=== PATIENT | female | born 1940 | race Caucasian/White ===

== ENCOUNTER 2017-01-23 14:43 | Inpatient (IN) | payer OTHER ==
--- NOTE | ~2017-01-23 | CN ---
Consultation Report [facility] [address] [place]. [address] NAME: ALBA CALVO : 38 STATUS : ADM IN PAT#: [id number] AGE: 76 ADM/REG DATE : 01/23/17 MR#: [id number] REPORT SERV DATE: 01/24/17 DICTATED BY: DILLON SANCHEZ DATE: 01/24/17 REPORT STATUS : Draft TRANSCRIBED BY: MODL DATE: 01/24/17 GI CONSULTATION. DATE OF CONSULTATION: 01/24/2017 REASON FOR CONSULTATION: Evaluation and management of partial small bowel obstruction, dark emesis/NG tube output. HISTORY OF PRESENT ILLNESS: Ms. Calvo is a very pleasant 76-year-old female patient who initially was seen at [facility] on 01/23/2017 for nausea and vomiting. 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 She states that she ate dinner the night before, which consisted of white beans, cornbread. She awoke with nausea, vomiting. She states she had multiple episodes of emesis, which was nonbloody. Secondary to uncontrolled emesis, she went to [facility]. She had a CT scan done there with IV contrast showing sigmoid colon diverticulosis, abnormal distal and terminal ilium attributed to nonspecific enteritis, however, neoplasm could not be excluded, mild distention of the proximal mid small bowel up to 2.8 cm, suspicious for early partial bowel obstruction, some minimal bowel inflammation. She was admitted to [facility] for further care. She had a flat and upright abdominal films this morning that showed nonobstructive bowel gas pattern. She states that she had to have repositioning of the NG tube multiple times, which was quite traumatic for her. Dr. Fink indicates that she had clear output initially, which has turned dark since being here. She denies any associated abdominal pain, fever, chills, chest pain, shortness of breath. She states that she had a somewhat normal bowel movement yesterday, but had none since then. She is at present passing some flatus, still denies abdominal pain. We were consulted to see her for the possibility of upper GI bleeding. Her hemoglobin is 13.1 with a recheck being ordered. I have discussed with her the potential of repeat CT scan as well as the potential of upper endoscopy tomorrow. She states that she has had a colonoscopy in the past about ten years ago, which was a completely benign exam. PAST MEDICAL HISTORY: Positive for an irregular heartbeat, taking verapamil; hypertension; benign breast biopsy. PAST SURGICAL HISTORY: Hysterectomy in the 1980s. ALLERGIES: PENICILLIN. HOME MEDICATIONS: Aspirin, vitamin B12, Hyzaar, and verapamil. FAMILY HISTORY: Negative from a GI standpoint. SOCIAL HISTORY: Denies alcohol, tobacco, or illicits. Lives independently. REVIEW OF SYSTEMS: Consultation Report [place] [id number] [place]. [address] NAME: ALBA CALVO : 38 STATUS : ADM IN [facility]#: [id number] AGE: 76 ADM/REG DATE : 01/23/17 MR#: [id number] REPORT SERV DATE: 01/24/17 DICTATED BY: DILLON SANCHEZ DATE: 01/24/17 REPORT STATUS : Draft TRANSCRIBED BY: MODL DATE: 01/24/17 A 10-point review of systems has been obtained with pertinent positives being addressed in the history of present illness. PERTINENT LABORATORY DATA: Sodium is 144, potassium 3.8, BUN is 13, creatinine 0.87. White count 8, hemoglobin 13.1, hematocrit 40. PHYSICAL EXAMINATION: VITAL SIGNS: Temperature is 98.2, pulse of 72, respirations 16, blood pressure 189/86. NEURO: Reveals an alert female sitting up in bed with no focal deficits. GENERAL: Cooperative, in no apparent distress. Awake, alert, oriented x3. HEAD EARS, EYES, NOSE, AND THROAT: Anicteric. Pupils equal, round, reactive to light and accommodation. Normocephalic and atraumatic. NECK: No JVD. No palpable nodes. LUNGS: Diminished throughout with normal respiratory effort exhibited. Equal expansion. CARDIOVASCULAR: Regular rate and rhythm. ABDOMEN: Round and obese. Nontender with hypoactive bowel sounds. NG tube with dark brown in the canister as well as the NG tubing. EXTREMITIES: No edema. Normal distal pulses. SKIN: Warm, dry, and intact. ASSESSMENT AND PLAN: 1. Dark coffee-ground material in the NG tube. Question if this could be secondary to NG tube trauma versus peptic ulcer disease. 2. Nausea and vomiting with partial small bowel obstruction on CT. 3. Abnormal distal ileum and terminal ileum on CT with questionable nonspecific enteritis. PLAN: 1. Increase her proton pump inhibitor to t.i.d. dosing. 2. Repeat CT scan in the morning. 3. EGD, if decreased hemoglobin continues with dark output from the NG tube. 4. Check sedimentation rate and CRP. 5. We will need followup colon with resolution of symptoms. 6. Stool studies if diarrhea. We will follow. ROSSI/RHONDA [place] JODI Owens / [id number] CC: Adriel Fink M.D. Consultation Report [address] [place]. [address] NAME: ALBA CALVO : 38 STATUS : ADM IN [facility]#: [id number] AGE: 76 ADM/REG DATE : 01/23/17 MR#: [id number] REPORT SERV DATE: 01/24/17 DICTATED BY: DILLON SANCHEZ DATE: 01/24/17 REPORT STATUS : Draft TRANSCRIBED BY: RHONDA DATE: 01/24/17 John Arriola M.D.
--- NOTE | ~2017-01-23 | HP ---
History And Physical [place] [id number] [facility] [place]. [address] NAME: ALBA JOSHUA : 38 STATUS : ADM IN PAT#: [id number] AGE: 76 ADM/REG DATE : 01/23/17 MR#: [id number] REPORT SERV DATE: 01/23/17 DICTATED BY: LISE BENJAMIN DATE: 01/23/17 REPORT STATUS : Draft TRANSCRIBED BY: MODL DATE: 01/23/17 DATE OF ADMISSION: 01/23/2017 HISTORY OF PRESENT ILLNESS: This is a 76-year-old female, who comes in for nausea and vomiting. The patient is a relatively healthy individual, who was doing fine and does not remember eating anything that did not agree with her. She slept around 10 o'clock, and around 12, she woke up and started vomiting previously ingested food, every so often for about three hours. She gotten so weak that she was brought to the emergency room. In the ER of [facility], they did several tests including a chest x-ray, which revealed a normal chest. They did a CAT scan of the abdomen and pelvis, which revealed a partial small bowel obstruction, the area of the distal and terminal ilium with possible enteritis. There is minimal bowel inflammation. They also found a 2.3 x 2.3 x 2.1 cm adrenal gland nodule. The patient then requested to be transferred to [facility], and she came in here and she said that she is actually feeling better. She had some abdominal pain, but denies it now. She did not have any chest pain, shortness of breath. She did not have any near syncopal or syncopal episode. No cough. No shortness of breath. No bowel changes. No urinary changes. No new rashes or joint pains. REVIEW OF SYSTEMS: The rest of the 14-point review of systems is negative except as above. PAST MEDICAL HISTORY: Includes a history of an irregular heartbeat for which she was placed on verapamil. She has been on it for about 30 years now. She was not given any specific diagnosis for that. She has high blood pressure. Hysterectomy in 198, a benign breast biopsies. ALLERGIES: SHE IS ALLERGIC TO PENICILLIN WHICH CAUSES A RASH. MEDICATIONS: Include aspirin, cyanocobalamin, Hyzaar, and verapamil. FAMILY HISTORY: The patient has two sons, one year ago. Rest of family history, it was asked and it is noncontributory. SOCIAL HISTORY: The patient does not smoke, drink, or use recreational drugs. 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 PHYSICAL EXAMINATION: GENERAL: The patient is alert and oriented x3, not in cardiopulmonary distress. VITAL SIGNS: Include a pulse rate of 96, respiration of 18, blood pressure of 143/82, saturating 95% on room air. NECK: She has supple neck. No JVD or carotid bruits. No lymphadenopathy. [place] conjunctivae. Anicteric sclerae. No pharyngeal erythema. She has an NGT in place. LUNGS: Clear lungs. No rales, no wheezes. CARDIOVASCULAR: Regular rate and rhythm. No murmurs appreciated. Positive bowel sounds. Soft, nontender, no masses. Fair pulses. No edema. NEURO: Nonlocalizing. History And Physical [address] [address] NAME: ALBA JOSHUA : 38 STATUS : ADM IN [facility]#: [id number] AGE: 76 ADM/REG DATE : 01/23/17 MR#: [id number] REPORT SERV DATE: 01/23/17 DICTATED BY: LISE BENJAMIN DATE: 01/23/17 REPORT STATUS : Draft TRANSCRIBED BY: RHONDA DATE: 01/23/17 LABORATORIES: From [facility] reveals a chemistry showing a glucose of 199. The rest of the chemistry is within acceptable limits. White count of 11.6. The rest of the CBC is within normal limits. Urinalysis is unremarkable. Lipase is 25, which is normal. Troponin is negative. IMAGING: EKG shows normal sinus rhythm. Normal axis. No ST-T wave changes. ASSESSMENT: 1. Enteritis. 2. Partial small bowel obstruction. 3. Hypertension. 4. History of arrhythmias. 5. Adrenal nodule. PLAN: The patient will be initially be managed conservatively with NGT and p.o. fluids and serial labs and KUB. We will give her some antiemetics as well. We will check the stool if positive diarrhea. If this worsens, we will get GI plus minus surgery to consult. We will hold p.o. medications for now and place on IV metoprolol. Check hemoglobin A1c and place on subcu insulin protocol. This has been explained to the patient in front of the family, and they agreed and understood the plan. RLY/RHONDA Lise Benjamin M.D. / [phone] CC: Dany Love M.D.
--- NOTE | ~2017-01-23 | IDS ---
Interim Discharge Summary [facility] [address] [place]. [address] NAME: ALBA JOSHUA : 38 STATUS : ADM IN PAT#: [id number] AGE: 76 ADM/REG DATE : 01/23/17 MR#: [id number] REPORT SERV DATE: 01/26/17 DICTATED BY: LISE BENJAMIN DATE: 01/26/17 REPORT STATUS : Draft TRANSCRIBED BY: RHONDA DATE: 01/26/17 ADMISSION DATE: 01/23/2017 DISCHARGE DATE: INTERIM DIAGNOSES: 1. Enteritis. 2. Partial small bowel obstruction. 3. Hypertension. 4. History of unknown arrhythmia. 5. Adrenal nodule. CONSULTING PHYSICIAN: Dr. Aguila for GI. DIAGNOSTIC EXAM: KUB showing satisfactory NG tube placement. Repeat x-ray showing nonobstructive bowel gas pattern without evidence for free air. NG tube in place as described. HOSPITAL COURSE: Please refer to the H and P done by myself dated on 01/23/2017. Briefly, this is a 76-year-old female, who comes in for nausea and vomiting. The patient started around few hours prior to admission when she started having some vomiting profusely several times before coming to the emergency room. She went finally to the ER of [facility] where a CAT scan of the abdomen and pelvis revealed a partial small bowel obstruction in the area of distal terminal ilium and possible enteritis. They also found an adrenal gland nodule. The patient requested to be transferred to [facility], and she was managed conservatively. The patient improved and was able to tolerate a clear liquid diet and denies pain; however, because of the findings of the CAT scan, we got GI involved, and they are planning to do a colonoscopy on the patient. The patient initially was hesitant for this, but finally agreed. So, she will undergo a colonoscopy tomorrow and a partner of [facility] will be following up the patient starting Friday. OFELIA/RHONDA Lise Benjamin M.D. / [id number] CC: Dany Love M.D.
--- NOTE | ~2017-01-23 | EGD ---
EGD REPORT [facility] [address] [place]. [address] NAME: BLANCA CALVO : 38 STATUS : ADM IN PAT#: [id number] AGE: 76 ADM/REG DATE : 01/23/17 MR#: [id number] REPORT SERV DATE: 01/27/17 DICTATED BY: DANNIE GÓMEZ DATE: 01/27/17 REPORT STATUS : Draft TRANSCRIBED BY: [facility] DATE: 01/27/17 Endoscopy Center Patient Name: Blanca Calvo Date of : 1940 Attending MD: DANNIE GÓMEZ MD Procedure Date No Time: 01/27/2017 Procedure: Colonoscopy Indications: Abnormal CT of the GI tract Referring MD: JOAO TREJO Medicines: Monitored Anesthesia Care Complications: No immediate complications. Estimated blood loss: Minimal. Procedure: Pre-Anesthesia Assessment: - ASA Grade Assessment: III - A patient with severe systemic disease. After I obtained informed consent, the scope was passed under direct vision. Throughout the procedure, the patient's blood pressure, pulse, and oxygen saturations were monitored continuously. The CF [id number] was introduced through the anus and advanced to the terminal ileum, with identification of the appendiceal orifice and IC valve. The colonoscopy was performed without difficulty. The patient tolerated the procedure well. The quality of the bowel preparation was good. Findings: The perianal and digital rectal examinations were normal. Pertinent negatives include no palpable rectal lesions. The terminal ileum appeared normal. Multiple small-mouthed diverticula were found in the sigmoid colon. A sessile polyp was found in the rectum. The polyp was 4 mm in size. The polyp was removed with a cold biopsy forceps. Resection and retrieval were complete. Estimated blood loss was minimal. Non-bleeding internal hemorrhoids were found during retroflexion and were medium-sized. The exam was otherwise without abnormality. Impression: - The examined portion of the ileum was normal. - Diverticulosis in the sigmoid colon. - One 4 mm polyp in the rectum. Resected and retrieved. - Non-bleeding internal hemorrhoids. - The examination was otherwise normal. Recommendation: - Return patient to [facility] for [facility] care. - Full liquid diet. EGD REPORT [address] [address] NAME: BLANCA CALVO : 38 STATUS : ADM IN [facility]#: [id number] AGE: 76 ADM/REG DATE : 01/23/17 MR#: [id number] REPORT SERV DATE: 01/27/17 DICTATED BY: DANNIE GÓMEZ DATE: 01/27/17 REPORT STATUS : Draft TRANSCRIBED BY: [employer] DATE: 01/27/17 - Await pathology results. Procedure Code(s): --- Professional --- 19276, Colonoscopy, flexible, proximal to splenic flexure; with biopsy, single or multiple Diagnosis Code(s): --- Professional --- K64.8, Other hemorrhoids K57.30, Diverticulosis of large intestine without perforation or abscess without bleeding K62.1, Rectal polyp R93.3, Abnormal findings on diagnostic imaging of other parts of digestive tract CPT copyright 2013 [employer]. All rights reserved. The codes documented in this report are preliminary and upon satellite communications engineer review may be revised to meet current compliance requirements. Dannie Gómez MD DANNIE GÓMEZ MD 01/27/2017 9:52 AM This report has been signed electronically. Number of Addenda: 0 Note Initiated On: 01/27/2017 9:08 AM Scope Withdrawal Time 0 hours 0 minutes 0 seconds [address] [place] [id number]
--- NOTE | ~2017-01-23 | DS ---
Discharge Summary [place] [address] [facility] [place]. [address] NAME: ALBA JOSHUA : 38 STATUS : DIS IN PAT#: [id number] AGE: 76 ADM/REG DATE : 01/23/17 MR#: [id number] REPORT SERV DATE: 01/28/17 DICTATED BY: LISE BENJAMIN. DATE: 01/27/17 REPORT STATUS : Draft TRANSCRIBED BY: RHONDA DATE: 01/27/17 ADMISSION DATE: 01/23/2017 DISCHARGE DATE: 01/27/2017 FINAL DIAGNOSES: 1. Enteritis. 2. Partial small bowel obstruction. 3. Hypertension. 4. History of arrhythmia. 5. Adrenal nodules. HOSPITAL COURSE: Please refer to my H and P done on 01/23/2017 and my interim discharge summary done on 01/26/2017. Since that time, the patient underwent a colonoscopy and it revealed sigmoid diverticula, internal hemorrhoids, 1 small polyp that was resected. No inflammation seen and no bleeding. GI then signed off. When the patient heard this, the patient wanted to be discharged home. So we are going to advance the patient's diet. If she tolerates a soft diet without any nausea, vomiting, abdominal pain, she will be discharged home with the above diagnoses. She will continue her home medications of Hyzaar 100/12.5 one tab p.o. daily, verapamil SR 240 mg a day, vitamin B12 of 1000 mcg a day, aspirin 81 mg at bedtime. She is going to follow up with Dr. Arriola in one to two weeks. This has been explained to the patient in front of three other family members, and they agreed and understood the plan. TIME SPENT: 35 minutes. OFELIA/RHONDA Lise Benjamin M.D. / [id number] CC: John Arriola M.D.
[2017-01-23] MEDS ORDERED: VERELAN240 MG PO (15:20)
[2017-01-23] MEDS ORDERED: CYANO1000T PO (15:20)
[2017-01-23] MEDS ORDERED: HYZAAR1 TAB PO (15:20)
[2017-01-23] MEDS ORDERED: ASAB PO (15:20)
[2017-01-23 18:24] LABS: INTERNATIONAL NORMAL RATI 1.1 UNITS (-); PARTIAL THROMBO TIME 25.3 SEC (22.5-37.2); PROTIME (NOT ORD) 14.1 SEC (12.0-14.5)
[2017-01-23 18:39] LABS: FREE T4 1.22 NG/DL (0.76-1.46); PHOSPHORUS, SERUM 2.8 MG/DL (2.5-4.5)
[2017-01-23 19:17] LABS: PROCALCITONIN <0.05 ng/mL (<0.5)
[2017-01-24 06:32] LABS: BASOPHILS 0.3 %; BASOPHILS ABSOLUTE 0.02 10/3/uL (0.0-0.16); EOSINOPHILS ABSOLUTE 0.16 10/3/uL (0.0-0.53); HEMOGLOBIN 13.1 g/dL (12.0-16.0); IMMATURE GRANULOCYTES 0.1 %; IMMATURE GRANULOCYTES ABSOLUTE 0.01 10/3/uL (0.0-0.11); LYMPHOCYTES 29.1 %; LYMPHOCYTES ABSOLUTE 2.32 10/3/uL (0.67-4.30); MANUAL DIFF NO %; MEAN CORPUS HGB CONC 32.8 g/dL (32.0-36.0); MEAN CORPUSCULAR HEMOGLOB 31.3 pg (26.0-34.0); MEAN CORPUSCULAR VOLUME 95.5 fL (80-100); MEAN PLATELET VOLUME 10.2 fL (9.2-13.0); MONOCYTES 7.9 %; MONOCYTES ABSOLUTE 0.63 10/3/uL (0.21-1.20); NEUTROPHILS 60.6 %; NEUTROPHILS ABSOLUTE 4.84 10/3/uL (2.02-8.40); PLATELET COUNT 274 10/3/uL (150-400); RBC DISTRIBUTION WIDTH 13.7 % (12.0-16.0); RED CELL COUNT 4.19 10/6/uL (4.0-5.6)
[2017-01-24 06:48] LABS: CALCIUM, SERUM 8.3 MG/DL (8.5-10.4); CHLORIDE, SERUM 109 MMOL/L (96-112); CO2 (CARBON DIOXIDE) 28 MMOL/L (24-34); CREATININE 0.87 MG/DL (0.55-1.02); GFR AFRICAN AMERICAN 74 ML/MIN (>=60); GFR NON AFRICAN AMERICAN 64 ML/MIN (>=60); GLUCOSE, SERUM 125 MG/DL (60-99); POTASSIUM, SERUM 3.8 MMOL/L (3.5-5.3); SODIUM, SERUM 144 MMOL/L (135-148)
[2017-01-24 06:49] LABS: BUN (BLOOD UREA NITROGEN) 13 MG/DL (6-23)
[2017-01-24 15:04] LABS: HEMATOCRIT 41.7 % (36.0-48.0); HEMOGLOBIN 13.5 g/dL (12.0-16.0)
[2017-01-24 15:38] LABS: SED RATE 20 MM/HR (0-20)
[2017-01-24 20:13] LABS: HEMATOCRIT 42.4 % (36.0-48.0); HEMOGLOBIN 13.7 g/dL (12.0-16.0)
[2017-01-25 02:09] LABS: BASOPHILS 0.1 %; BASOPHILS ABSOLUTE 0.01 10/3/uL (0.0-0.16); EOSINOPHILS 1.8 %; EOSINOPHILS ABSOLUTE 0.17 10/3/uL (0.0-0.53); HEMATOCRIT 39.6 % (36.0-48.0); HEMOGLOBIN 13.1 g/dL (12.0-16.0); IMMATURE GRANULOCYTES 0.2 %; IMMATURE GRANULOCYTES ABSOLUTE 0.02 10/3/uL (0.0-0.11); LYMPHOCYTES 23.2 %; LYMPHOCYTES ABSOLUTE 2.19 10/3/uL (0.67-4.30); MANUAL DIFF NO %; MEAN CORPUS HGB CONC 33.1 g/dL (32.0-36.0); MEAN CORPUSCULAR HEMOGLOB 31.8 pg (26.0-34.0); MEAN CORPUSCULAR VOLUME 96.1 fL (80-100); MEAN PLATELET VOLUME 10.2 fL (9.2-13.0); MONOCYTES 7.8 %; MONOCYTES ABSOLUTE 0.74 10/3/uL (0.21-1.20); NEUTROPHILS 66.9 %; PLATELET COUNT 251 10/3/uL (150-400); RBC DISTRIBUTION WIDTH 13.5 % (12.0-16.0); RED CELL COUNT 4.12 10/6/uL (4.0-5.6); WHITE BLOOD CELLS 9.4 10/3/uL (4.5-10.5)
[2017-01-25 02:21] LABS: BUN (BLOOD UREA NITROGEN) 11 MG/DL (6-23); CALCIUM, SERUM 8.3 MG/DL (8.5-10.4); CHLORIDE, SERUM 106 MMOL/L (96-112); CO2 (CARBON DIOXIDE) 30 MMOL/L (24-34); CREATININE 0.89 MG/DL (0.55-1.02); GFR AFRICAN AMERICAN 72 ML/MIN (>=60); GFR NON AFRICAN AMERICAN 62 ML/MIN (>=60); GLUCOSE, SERUM 110 MG/DL (60-99); POTASSIUM, SERUM 3.8 MMOL/L (3.5-5.3); SODIUM, SERUM 142 MMOL/L (135-148)
[2017-01-25 08:58] LABS: HEMATOCRIT 40.8 % (36.0-48.0); HEMOGLOBIN 13.3 g/dL (12.0-16.0)
[2017-01-26 11:43] LABS: BASOPHILS 0.1 %; BASOPHILS ABSOLUTE 0.01 10/3/uL (0.0-0.16); EOSINOPHILS 2.5 %; HEMATOCRIT 40.9 % (36.0-48.0); HEMOGLOBIN 13.3 g/dL (12.0-16.0); IMMATURE GRANULOCYTES 0.3 %; IMMATURE GRANULOCYTES ABSOLUTE 0.02 10/3/uL (0.0-0.11); LYMPHOCYTES 27.5 %; LYMPHOCYTES ABSOLUTE 2.18 10/3/uL (0.67-4.30); MEAN CORPUS HGB CONC 32.5 g/dL (32.0-36.0); MEAN CORPUSCULAR HEMOGLOB 30.9 pg (26.0-34.0); MEAN CORPUSCULAR VOLUME 94.9 fL (80-100); MEAN PLATELET VOLUME 10.6 fL (9.2-13.0); MONOCYTES 11.2 %; MONOCYTES ABSOLUTE 0.89 10/3/uL (0.21-1.20); NEUTROPHILS 58.4 %; NEUTROPHILS ABSOLUTE 4.62 10/3/uL (2.02-8.40); PLATELET COUNT 264 10/3/uL (150-400); RBC DISTRIBUTION WIDTH 13.5 % (12.0-16.0); RED CELL COUNT 4.31 10/6/uL (4.0-5.6); WHITE BLOOD CELLS 7.9 10/3/uL (4.5-10.5)
[2017-01-26 11:46] LABS: MANUAL DIFF NO %
[2017-01-26 11:55] LABS: BUN (BLOOD UREA NITROGEN) 8 MG/DL (6-23); CALCIUM, SERUM 8.9 MG/DL (8.5-10.4); CHLORIDE, SERUM 106 MMOL/L (96-112); CO2 (CARBON DIOXIDE) 28 MMOL/L (24-34); CREATININE 0.83 MG/DL (0.55-1.02); GFR AFRICAN AMERICAN 78 ML/MIN (>=60); GFR NON AFRICAN AMERICAN 68 ML/MIN (>=60); POTASSIUM, SERUM 3.9 MMOL/L (3.5-5.3); SODIUM, SERUM 141 MMOL/L (135-148)
[2017-01-26 11:56] LABS: GLUCOSE, SERUM 67 MG/DL (60-99)
[2017-01-27 06:35] LABS: BASOPHILS 0.1 %; BASOPHILS ABSOLUTE 0.01 10/3/uL (0.0-0.16); EOSINOPHILS 2.5 %; EOSINOPHILS ABSOLUTE 0.17 10/3/uL (0.0-0.53); HEMATOCRIT 37.4 % (36.0-48.0); HEMOGLOBIN 12.5 g/dL (12.0-16.0); IMMATURE GRANULOCYTES 0.3 %; IMMATURE GRANULOCYTES ABSOLUTE 0.02 10/3/uL (0.0-0.11); LYMPHOCYTES 29.4 %; LYMPHOCYTES ABSOLUTE 1.97 10/3/uL (0.67-4.30); MANUAL DIFF NO %; MEAN CORPUS HGB CONC 33.4 g/dL (32.0-36.0); MEAN CORPUSCULAR HEMOGLOB 31.6 pg (26.0-34.0); MEAN CORPUSCULAR VOLUME 94.7 fL (80-100); MEAN PLATELET VOLUME 10.7 fL (9.2-13.0); MONOCYTES 8.8 %; MONOCYTES ABSOLUTE 0.59 10/3/uL (0.21-1.20); NEUTROPHILS 58.9 %; NEUTROPHILS ABSOLUTE 3.95 10/3/uL (2.02-8.40); PLATELET COUNT 237 10/3/uL (150-400); RBC DISTRIBUTION WIDTH 13.4 % (12.0-16.0); RED CELL COUNT 3.95 10/6/uL (4.0-5.6); WHITE BLOOD CELLS 6.7 10/3/uL (4.5-10.5)
[2017-01-27 06:45] LABS: BUN (BLOOD UREA NITROGEN) 8 MG/DL (6-23); CALCIUM, SERUM 8.4 MG/DL (8.5-10.4); CHLORIDE, SERUM 107 MMOL/L (96-112); CO2 (CARBON DIOXIDE) 25 MMOL/L (24-34); CREATININE 0.74 MG/DL (0.55-1.02); GFR AFRICAN AMERICAN 90 ML/MIN (>=60); GFR NON AFRICAN AMERICAN 78 ML/MIN (>=60); GLUCOSE, SERUM 101 MG/DL (60-99); POTASSIUM, SERUM 3.4 MMOL/L (3.5-5.3); SODIUM, SERUM 143 MMOL/L (135-148)
== END 2017-01-27 14:36 | disposition home or self-care (01) | DRG 392 ==
LOC: 5SO 14:43
PROVIDERS: Internal Medicine; Internal Medicine Gastroenterology; Nurse Practitioner Family
PROC: 0DBP8ZZ Excision of Rectum, Via Natural or Artificial Opening Endoscopic (ICD-10-PCS; principal; 2017-01-27 09:26)
DX: K52.9 Noninfective gastroenteritis and colitis, unspecified (principal); K56.60 Unspecified intestinal obstruction; I10 Essential (primary) hypertension; E66.9 Obesity, unspecified; Z68.37 Body mass index [BMI] 37.0-37.9, adult; K62.1 Rectal polyp; K57.30 Diverticulosis of large intestine without perforation or abscess without bleeding; K64.8 Other hemorrhoids; E27.9 Disorder of adrenal gland, unspecified; Z88.0 Allergy status to penicillin; Z79.82 Long term (current) use of aspirin
CPT/HCPCS: 74000; 74020; 80048; 82962; 83036; 83605; 83735; 84100; 84145; 84439; 84443; 85014; 85018; 85025; 85610; 85652; 85730; 86140; 88305; A9270-GY; C9113; J0360